=== PATIENT | female | born 1995 | race Hispanic/Latino ===

== ENCOUNTER 2016-11-19 13:20 | Inpatient (IN) | payer OTHER ==
[~2016-11-19] VITALS: Ht 147.3 cm; Wt 81.6 kg
[2016-11-19] VITALS (11 sets, daily range): BP systolic 120–145; BP diastolic 61–82
[~2016-11-19 13:20] MED LIST: IBUPROFEN600 MG PO; PRE-NATAL PO
--- NOTE | 2016-11-19 13:20 | NUR ---
Received patient from er to Room 253. Patient weighed and height obtained. Patient states she started having contractions at 2:30 am. Patient denies feeling rupture of membranes.
--- NOTE | 2016-11-19 13:20 | NUR ---
Dr. Paz on unit assessed patient and states that she is 3 to 4 cm,80% effaced, -2 station. Order for patient to ambulate and see if cervical change further.
--- NOTE | 2016-11-19 13:30 | NUR ---
Patient samaria every 1 to 3 minutes lasting 30 to 60 seconds in duration. Patient rating pain of 5 on scale of 1 to 10.
--- NOTE | 2016-11-19 13:40 | NUR ---
Patient ambulating in yang accompanied by significant other. Patient breathing in between contractions.
[2016-11-19 14:04] LABS: URINE BLOOD DIPSTICK TRACE-INTACT (NEGATIVE); URINE CLARITY CLEAR; URINE COLOR YELLOW; URINE GLUCOSE - DIPSTICK NEGATIVE (NEGATIVE); URINE KETONE TRACE mg/dL (NEGATIVE); URINE LEUK ESTERASE NEGATIVE (NEGATIVE); URINE NITRITE - DIPSTICK NEGATIVE (Negative); URINE PROTEIN - DIPSTICK TRACE mg/dL (NEG-TRACE); URINE SPECIFIC GRAVITY >=1.030
[2016-11-19 14:06] LABS: URINE BILIRUBIN - DIPSTICK NEGATIVE (NEGATIVE)
[2016-11-19 14:08] LABS: BARBITURATES NEGATIVE (NEGATIVE); COCAINE NEGATIVE (NEGATIVE); METHADONE NEGATIVE (NEGATIVE); TETRAHYDROCANNABIONOL NEGATIVE (NEGATIVE); TRICYLIC ANTIDEPRESSANTS NEGATIVE (NEGATIVE)
[2016-11-19 14:09] LABS: OXCYCODONE NEGATIVE (NEGATIVE)
--- NOTE | 2016-11-19 14:30 | NUR ---
patient to room at present time stating alot of pain after ambulating. SVE of 6 cm, -1 station, with bulging membranes and 90% effacement. Call to Dr. Paz to admit patient. Patient being prepared to move to birthing room.
--- NOTE | 2016-11-19 14:40 | NUR ---
IV started with lactated ringers at 150cc/hr, labs for cbc, cmp and type and screen to lab. PCN g 5,000,000 units started and infusing.
--- NOTE | 2016-11-19 14:45 | NUR ---
Patient artificially ruptured for clear by DR. Paz.
--- NOTE | 2016-11-19 14:50 | NUR ---
Patient pushing in between contractions. heart rate of 135.
--- NOTE | 2016-11-19 15:15 | NUR ---
Patient pushing in between contractions. heart rate of 135. moderate variability.
--- NOTE | 2016-11-19 15:15 | NUR ---
Patient having bowel movement. Dr. franklin in room. SVE of complete,
--- NOTE | 2016-11-19 15:16 | NUR ---
Patient delivered viable male.
--- NOTE | 2016-11-19 15:30 | NUR ---
Fundus firm, moderate to heavy lochia noted. fundus massaged teaching explained to patient.
--- NOTE | 2016-11-19 15:45 | NUR ---
Fundus massaged slightly boggy. Moderate to heavy lochia noted.
[2016-11-19 15:47] LABS: HEMATOCRIT 32.7 % (37.0-47.0); HEMOGLOBIN 11.1 g/dl (12.0-16.0); IMMATURE GRANULOCYTES 0.6 % (0.0-1.0); MEAN CELL VOLUME 85.6 fL CALC (80.0-100.0); MEAN CORPUSCULAR HGB 29.1 pG CALC (26.0-32.0); MEAN CORPUSCULAR HGB CONC 33.9 g/L CALC (32.0-36.0); NEUT# 4.82 thou/uL (2.00-7.15); RED BLOOD COUNT 3.82 mill/uL (4.20-5.60); RED CELL DISTRI WIDTH 14.1 % (11.5-15.5)
[2016-11-19 15:54] LABS: ALBUMIN 3.3 g/dL (3.2-5.0); ALKALINE PHOSPHATASE 184 u/l (38-126); ANION GAP 14 (6-22 (CALC)); BILIRUBIN, TOTAL 0.3 mg/dL (0.0-1.4); BUN 9 mg/dL (7-17); BUN/CREATININE RATIO 15 (12-20 (CALC)); CARBON DIOXIDE 18 mmol/l (22-30); CHLORIDE 109 mmol/l (95-108); CREATININE 0.6 mg/dL (0.5-1.0); GFR > 60 ML/MIN (>=60 (CALC)); GFR FOR AFR.AMER. > 60 ML/MIN (>=60 (CALC)); GLUCOSE 85 mg/dL (65-105); SGOT/AST 19 u/l (14-36); SGPT/ALT 23 u/l (9-52); SODIUM 138 mmol/l (137-146); TOTAL PROTEIN 6.1 g/dL (6.3-8.2)
--- NOTE | 2016-11-19 16:00 | NUR ---
Fundus moderate lochia. Fundus massaged. Clots small noted.
--- NOTE | 2016-11-19 17:20 | NUR ---
Patient up to bathroom with assist. pericare done with instructions. Moderate lochia noted. fundus firm.
--- NOTE | 2016-11-19 18:30 | NUR ---
Patient up to bathroom. pericare done. moderate to heavy lochia noted. will continue to monitor.
--- NOTE | 2016-11-19 18:45 | NUR ---
Dr. Paz notified of heavy lochia. Order for cytotec by mouth now.
--- NOTE | 2016-11-19 18:47 | NUR ---
REPORT RECEIVED FROM DAY SHIFT NURSE ELIZA LEWIS RN ON PT STATUS. PT RESTING IN BED VISITING WITH . STATES PAIN IS 4/10 BUT DOES NOT WANT PAIN MEDICATION AT THIS TIME.
--- NOTE | 2016-11-19 19:38 | NUR ---
FAMILY AND VISITORS HERE TO SEE PT AND BABY. ENCOURAGED VISITORS TO WASH HANDS BEFORE HOLDING . DENIES ANY COMPLAINTS OR PAIN. IV INFUSING PER MED PUMP AT 125CC/HR. IV SITE WNL.
--- NOTE | 2016-11-19 21:17 | NUR ---
PT RESTING IN BED EATING FOOD BROUGHT HER. IN CRIB. PT DENIES PAIN AND REFUSES PAIN MEDICATION. OFFERS NO OTHER COMPLAINTS.
--- NOTE | 2016-11-19 23:00 | NUR ---
PT WATCHING TV. IN CRIB. AT BEDSIDE. NO COMPLAINTS. BED IN LOW POSITION, CALL LIGHT WITHIN REACH.
--- NOTE | 2016-11-20 00:25 | NUR ---
PT FEEDING INFANT BOTTLE. DENIES PAIN OR DISCOMFORT. REPORTS DOING OWN PERICARE AND CHANGING PERIPADS WITH EACH VOID.
--- NOTE | 2016-11-20 02:10 | NUR ---
PT . NO COMPLAINTS. BED IN LOW POSITION, CALL LIGHT WITHIN REACH. AT BEDSIDE SLEEPING.
--- NOTE | 2016-11-20 04:37 | NUR ---
PT SLEEPING. RESP EVEN AND UNLABORED. NO SIGNS OF DISTRESS.
--- NOTE | 2016-11-20 05:50 | NUR ---
CBC DRAWN OUT OF LEFT AC WITHOUT DIFFICULTY. PT CONTINUES TO DENY PAIN. HOLDING .
--- NOTE | 2016-11-20 06:45 | NUR ---
Received report from prior shift.
--- NOTE | 2016-11-20 06:45 | NUR ---
REPORT READY FOR DAY SHIFT NURSE.
[2016-11-20 06:55] LABS: HEMATOCRIT 30.1 % (37.0-47.0); HEMOGLOBIN 10.4 g/dl (12.0-16.0); IMMATURE GRANULOCYTES 0.4 % (0.0-1.0); MEAN CELL VOLUME 84.3 fL CALC (80.0-100.0); MEAN CORPUSCULAR HGB 29.1 pG CALC (26.0-32.0); MEAN CORPUSCULAR HGB CONC 34.6 g/L CALC (32.0-36.0); NEUT# 7.31 thou/uL (2.00-7.15); RED BLOOD COUNT 3.57 mill/uL (4.20-5.60); RED CELL DISTRI WIDTH 13.7 % (11.5-15.5)
--- NOTE | 2016-11-20 07:30 | NUR ---
Assessment done and completed at present time.
[2016-11-20 08:00] VITALS: BP 110/56
--- NOTE | 2016-11-20 10:55 | NUR ---
Patient in room visiting with family and friends.
--- NOTE | 2016-11-20 12:29 | NUR ---
Patient resting in room showered.
--- NOTE | 2016-11-20 13:42 | NUR ---
Patient resting in room in no distress.
--- NOTE | 2016-11-20 13:42 | NUR ---
Patient resting comfortably in open crib.
[2016-11-20 16:16] VITALS: BP 123/71
--- NOTE | 2016-11-20 16:21 | NUR ---
Patient visiting with family and friends.
--- NOTE | 2016-11-20 18:45 | NUR ---
REPORT RECEIVED FROM ELIZA LEWIS RN ON PT STATUS. PT RESTING IN BED HOLDING . DENIES PAIN OR DISCOMFORT. BED IN LOW POSITION, CALL LIGHT WITHIN REACH. FRESH WATER AND APPLE JUICE GIVEN.
[2016-11-20 21:40] VITALS: BP 126/40
--- NOTE | 2016-11-20 21:40 | NUR ---
PT EATING FOOD FROM HOME. HEAD TO TOE PHYSICAL ASSESSMENT COMPLETED. VS TAKEN AND STABLE. CONTINUES TO DENY PAIN OR DISCOMFORT. UP AD JOHNNY TO USE RESTROOM ON HER OWN.
--- NOTE | 2016-11-21 00:42 | NUR ---
SITTING IN CHAIR, FEEDING . DENIES NEEDS AT THIS TIME. REMINDED TO CALL NEEDED.
--- NOTE | 2016-11-21 02:03 | NUR ---
INFANT TO NURSERY PER PATIENT REQUEST. PATIENT SETTLED AND READY FOR SLEEP. SIDE RAILS UP X 2, CALL [place] WITHIN REACH.
[2016-11-21 07:00] VITALS: BP 124/69
--- NOTE | 2016-11-21 07:00 | NUR ---
PT LAYING IN BED, ASSESSMENT AND VS DONE, STABLE, DENIES ANY PAIN. DISCUSSED PLAN OF CARE WITH PT, PT VERBALIZED UNDERSTANDING.
--- NOTE | 2016-11-21 07:30 | NUR ---
DR MONTES IN TO SEE PT. OBTAINED D/C ORDERS. PT STATES NO PAIN, QUESTIONS OR CONCERNS AT THIS TIME.
[2016-11-21] MEDS ORDERED: IBUPROFEN600 MG PO (08:09)
--- NOTE | 2016-11-21 10:33 | NUR ---
PT IS RESTING QUIETLY IN BED, NO S/S OF DISTRESS NOTED.
--- NOTE | 2016-11-21 14:15 | NUR ---
PT IS UP IN BED VISITING WITH FAMILY. CONDITION IS STABLE. NO NEEDS AT HTIS TIME.
--- NOTE | 2016-11-21 15:17 | NUR ---
Discharge instructions given and reviewed. Pt. verbalizes understanding. Discharged in good condition via Wheelchair to Home accompanied by significant other.
== END 2016-11-21 15:17 | disposition home or self-care (01) | DRG 775 ==
LOC: OB 13:20 → OBOP 13:20 → OB 14:30
PROVIDERS: ADMIT Obstetrics & Gynecology; ATTEND Obstetrics & Gynecology
PROC: 10907ZC Drainage of Amniotic Fluid, Therapeutic from Products of Conception, Via Natural or Artificial Opening (ICD-10-PCS; principal; 2016-11-19)
PROC: 10E0XZZ Delivery of Products of Conception, External Approach (ICD-10-PCS; 2016-11-19)
DX: O48.0 Post-term pregnancy (principal); O69.81X0 Labor and delivery complicated by cord around neck, without compression, not applicable or unspecified; Z3A.41 41 weeks gestation of pregnancy; Z37.0 Single live birth
CPT/HCPCS: J2540